=== PATIENT | female | born 1965 | race Caucasian/White ===

== ENCOUNTER → 2018-03-10 12:10 | Outpatient (CLI) | payer MEDICARE, OTHER, SELFPAY ==
--- NOTE | 2018-03-10 | DI.MRI.S_ITS ---
PROCEDURE: MR CERVICAL SPINE WO CON INDICATIONS: Cervical disc disorder, unspecified, unspecified c TECHNIQUE: Noncontrast sagittal T1 spin echo and T2 fast spin echo, sagittal STIR, foraminal oblique sagittal T2 fast spin echo, and axial gradient echo or T2 fast spin echo through the cervical spine. COMPARISON: [facility], CR, SPINE CERVICAL 2 OR 3VW, 08/22/2015, 16:29. [facility], MR, C-SPINE W&WO CONTRAST, 11/06/2014, 13:05. FINDINGS: Image quality: Partially degraded by motion artifact. Alignment and Curvature: There is loss of normal cervical lordosis. There is mild grade 1 anterolisthesis of C3 on C4. Mild grade 1 retrolisthesis of C6 on C7. Bone Marrow: Marrow demonstrates normal overall signal. Anterior fusion of C4-C5 and C5-C6 has been performed. Spinal Cord: Visualized spinal cord has normal size and signal. No cerebellar tonsillar herniation. Paraspinous Soft Tissues: No paravertebral masses. Prevertebral soft tissues are normal in thickness. C2-C3: Congenital canal stenosis. Disc desiccation. Moderate facet and uncovertebral hypertrophy, left greater than right. Mild canal stenosis. Severe left and no right foraminal stenosis. Flattening deformity of the left C3 nerve root C3-C4: Congenital canal stenosis. Mild disc height loss. Moderate disc desiccation. Mild diffuse disc bulge with superimposed broad-based left posterolateral protrusion. Moderate bilateral facet and uncovertebral hypertrophy. Increased, severe canal stenosis with new mild cord flattening. Increased, severe left and moderate right foraminal stenosis. Flattening deformity of the left C4 nerve root C4-C5: Anterior fusion. Bilateral facet and uncovertebral hypertrophy. Congenital canal stenosis. Decreased, moderate to severe canal stenosis. Mild right and moderate left foraminal stenosis or unchanged. C5-C6: Congenital canal stenosis. Status post fusion. Mild residual disc osteophyte complex. Bilateral facet and uncovertebral hypertrophy. Decreased, moderate to severe canal stenosis. Decreased, minimal cord flattening. Decreased, moderate left greater than right foraminal stenosis. C6-C7: Congenital canal stenosis. Mild disc desiccation and diffuse disc bulge. Moderate bilateral facet and uncovertebral hypertrophy. Moderate canal stenosis. Severe right and moderate left foraminal stenosis. Flattening deformity of the right C7 nerve root. C7-T1: Congenital canal stenosis. Mild disc desiccation and diffuse disc bulge. Bilateral facet and uncovertebral hypertrophy. Minimal canal stenosis. Mild bilateral foraminal stenosis. No change. IMPRESSION: 1. Diffuse congenital canal stenosis with superimposed disc and facet disease, as well as uncovertebral hypertrophy. 2. Status post C4-C5 and C5-C6 anterior fusion, with decreased canal stenoses at those levels. There is decreased, minimal cord flattening at C5-C6. 3. Increased, severe canal stenosis at C3-C4, with new mild cord flattening. 4. Multilevel foraminal stenoses, with associated neural compression at C2-C3, C3-C4, and C6-C7 as described above. Recommend correlation with clinical symptoms to ascertain relevance of these findings. Dictated by: Mattie Chua M.D. on 03/10/2018 at 13:35 Approved by: Mattie Chua M.D. on 03/10/2018 at 13:44
== END ==
PROVIDERS: PCP Internal Medicine; Visit Provider Orthopaedic Surgery
DX: M48.02 Spinal stenosis, cervical region (principal); Z98.1 Arthrodesis status
CPT/HCPCS: 72141

== ENCOUNTER → 2018-05-02 15:37 | Outpatient (CLI) | payer MEDICARE, OTHER, SELFPAY ==
--- NOTE | 2018-05-02 | DI.MRI.S_ITS ---
PROCEDURE: MR HIP RT WO CON INDICATIONS: PAIN IN RIGHT HIP TECHNIQUE: Noncontrast coronal T1 spin echo and STIR through the bony pelvis. Coronal and axial T2 fast spin echo with fat saturation, sagittal T1 spin echo, and oblique axial T2 fast spin echo with fat saturation through the hip. COMPARISON: None. FINDINGS: Image quality: Diagnostic. Bones and joints: There is no acute fracture, dislocation, suspicious osseous lesion, or evidence of avascular necrosis involving the right hip. Mild degenerative changes of the right hip are present with small developing marginal osteophytes and mild heterogeneity of the hyaline articular cartilage. No degenerative marrow changes are appreciated, however. Lateral elongation of the acetabulum is identified. The alpha angle of the right femoral head is increased and measures up to approximately 60?. No significant right hip effusion is identified. The remainder of the image osseous structures of the pelvis are otherwise unremarkable without significant pathology. Postoperative changes of the lower lumbar spine are evident. No displaced fractures or suspicious osseous lesions of the pelvis are appreciated. There may be mild red marrow reconversion. Labrum: Evaluation of the right acetabular labrum is difficult without intra-articular contrast. There is slight heterogeneity along the anterosuperior aspect of the labrum with increased signal identified extending parallel to the articular surface along the superior aspect of the labrum (11 to 12 o'clock position) (image 10, series 7). No para labral cysts or detached labral fragments are evident. Tendons and ligaments: Irregular full-thickness tearing is identified involving the distal right gluteus minimus tendon with corresponding edema extending along the myotendinous junction. The gluteus medius tendon demonstrates mild tendinopathy, but is otherwise unremarkable. There is mild increased signal identified involving the proximal right hamstrings tendons. The distal iliopsoas tendons are intact and otherwise within normal limits. The ligamentum teres demonstrates increased signal and moderate irregularity. Soft tissues: Visualized muscles demonstrate normal bulk and internal signal. Quadratus femoris muscle demonstrates no internal edema to suggest ischiofemoral impingement. The proximal sciatic neurovascular bundle appears normal adjacent to the hamstring tendons. No free pelvic fluid. Bladder wall thickness is normal. Genitourinary structures and bowel loops appear normal where visualized. There is a question of dermoid cyst involving the left ovary versus hemorrhagic components, measuring up to 1.5 cm in diameter. IMPRESSION: 1. Mild degenerative changes of the right hip. 2. Small anterosuperior right acetabular labral tear could potentially be related to femoral acetabular impingement, given mild lateral elongation of the superior acetabulum and increased alpha angle of the femoral head. 3. Full-thickness tear of the distal right gluteus minimus tendon. 4. Mild distal right gluteus medius tendinopathy and proximal right hamstrings tendinopathy. 5. Probable partial-thickness tearing of the ligamentum teres. 6. Possible small dermoid cyst of the left ovary is of doubtful clinical significance. Dictated by: Eliezer Goins M.D. on 05/02/2018 at 16:42 Approved by: Eliezer Goins M.D. on 05/02/2018 at 16:48
== END ==
PROVIDERS: PCP Internal Medicine; Visit Provider Orthopaedic Surgery
DX: M25.551 Pain in right hip (principal); S73.191A Other sprain of right hip, initial encounter; S76.811A Strain of other specified muscles, fascia and tendons at thigh level, right thigh, initial encounter; M16.11 Unilateral primary osteoarthritis, right hip
CPT/HCPCS: 73721

== ENCOUNTER → 2020-11-04 09:28 | Outpatient (CLI) | payer MEDICARE, OTHER, SELFPAY ==
--- NOTE | 2020-11-04 | DI.MG.S_ITS ---
BILATERAL DIGITAL DIAGNOSTIC MAMMOGRAM 3D/2D: 11/04/2020 CLINICAL: Right axillary lump. Comparison is made to exams dated: 09/05/2014 mammogram and 08/24/2010 mammogram - outside location. There are scattered fibroglandular elements in both breasts. No significant masses, calcifications, or other findings are seen in either breast. Specifically, no finding to correspond to the patient's right axillary palpable abnormality. Benign lymph nodes are present. IMPRESSION: INCOMPLETE: NEEDS ADDITIONAL IMAGING EVALUATION There is no abnormality seen in the right axilla to correspond with the palpable abnormality in the right axilla. Palpable lump could correspond to benign lymph nodes or a lipoma. Ultrasound is recommended for full evaluation of this area. This was performed immediately following this exam. This exam was interpreted at Station ID: [id number]. NOTE: For mammograms, a report in lay terms will be sent to the patient. Approximately 15% of breast malignancies will not be visualized mammographically. In the management of a palpable breast mass, a negative mammogram must not discourage biopsy of a clinically suspicious lesion. Electronically Signed By: Disha steele/:11/04/2020 10:11:25 ACR BI-RADS Category 0: Incomplete [id number]
--- NOTE | 2020-11-04 | DI.US.S_ITS ---
ULTRASOUND OF RIGHT AXILLA: 11/04/2020 CLINICAL: Palpable right axilla lump. Comparison is made to exams dated: 11/04/2020 mammogram - [facility], 09/05/2014 mammogram, and 08/24/2010 mammogram - outside location. Color flow and real-time ultrasound of the right axilla were performed. Calvo scale images of the real-time examination were reviewed. There are multiple benign normal lymph nodes in the right axillary tail. These normal lymph nodes display fatty hilum. These correlate as palpated and with mammography findings. Color flow imaging demonstrates that there is no increase in vascularity. IMPRESSION: BENIGN There is no sonographic evidence of malignancy. The multiple normal lymph nodes are benign. Return to annual mammogram screening schedule is recommended. Findings and recommendations were conveyed to the patient at time of exam. This exam was interpreted at Station ID: [id number]. Electronically Signed By: Disha steele/:11/04/2020 11:07:33 letter sent: Normal Exam Ultrasound BI-RADS: 2 Benign
== END ==
PROVIDERS: PCP Internal Medicine; Referring Provider Internal Medicine; Visit Provider Internal Medicine
DX: N63.31 Unspecified lump in axillary tail of the right breast; R92.2 Inconclusive mammogram
CPT/HCPCS: 76882; 77066; G0279

== ENCOUNTER 2021-03-21 14:09 | Emergency (ER) | payer MEDICARE, OTHER, SELFPAY ==
[2021-03-21] VITALS (7 sets, daily range): BP systolic 120–169; BP diastolic 68–86; PULSE 60–72; RESP 18; TEMP 37; O2SAT 95–97; BMI 25.7
[2021-03-21 14:52] LABS: Add Manual Diff / Slide Review NO; Basophils Absolute Auto 0 /uL (0-100); Basophils Percent Auto 0.6 % (0-2); Eosinophils Absolute Auto 100 /uL (0-450); Eosinophils Percent Auto 2.3 % (2-4); Hematocrit 45.8 % (36-46); Hemoglobin 15.5 g/dL (12.0-16.0); Lymphocytes Absolute Auto 1200 /uL (1100-4500); Lymphocytes Percent Auto 24.9 % (25-40); Mean Corpuscular HGB Conc 33.8 % (30-36); Mean Corpuscular Hemoglobin 31.4 PG (26-34); Monocytes Absolute Auto 400 /uL (0-900); Monocytes Percent Auto 8.5 % (3-14); Neutrophils Absolute Auto 3000 /uL (1500-7000); Neutrophils Percent Auto 63.7 % (50-75); Platelet Count 192 X10^3/uL (150-400); Red Blood Cell Count 4.93 X10^6/uL (4.0-5.2); White Blood Cell Count 4.7 X10^3/uL (4.5-11.0)
[2021-03-21] MEDS: KETOROLAC 30 MG/ML VIAL IV (14:55)
[2021-03-21] MEDS: ONDANSETRON 4 MG/2 ML INJ IV (14:55)
[2021-03-21 14:56] LABS: Alanine Aminotransferase 26 IU/L (<35); Albumin 4.7 g/dL (3.5-5.0); Albumin Globulin Ratio 1.7 (1.0-2.8); Alkaline Phosphatase 68 U/L (38-126); Aspartate Aminotransferase 29 IU/L (14-36); BUN Creatinine Ratio 20.5 (6-22); Bilirubin Total 0.5 mg/dL (0.2-1.3); Blood Urea Nitrogen 15 mg/dL (7-17); Calcium 9.7 mg/dL (8.4-10.2); Carbon Dioxide 31 mmol/L (22-32); Chloride 102 mmol/L (98-107); Estimated Glomerular Filt Rate > 60.0 mL/min (>60); Globulin 2.8 g/dL (1.7-4.1); Glucose 94 mg/dL (70-100); HEMOLYSIS < 15 (0-50); Lipase 152 U/L (23-300); Potassium 4.6 mmol/L (3.4-5.1); Sodium 140 mmol/L (137-145); Total Protein 7.5 g/dL (6.3-8.2)
[2021-03-21 15:22] LABS: Bacteria Urine Occasional (0-1); Culture Indicated Urine Cult Not Indicated; RBC Urine 1-5/HPF (0-5/HPF); Squamous Epithelial Cell Urine 0-1 /HPF (0-5/HPF); WBC Urine 0-1/HPF (0-5/HPF)
--- NOTE | 2021-03-21 16:35 | DI.CT.S_ITS ---
PROCEDURE: CT KIDNEY URETER BLADDER (KUB) INDICATIONS: left flank pain TECHNIQUE: Axial sections were acquired from the lung bases to the pubic symphysis. Coronal and sagittal reformats were performed. For radiation dose reduction, the following was used: automated exposure control, adjustment of mA and/or kV according to patient size. COMPARISON: None. FINDINGS: Image quality: Excellent. Lung bases: There is atelectasis in the lung bases. Heart: Heart is normal in size. There is a small hiatal hernia. URINARY: Right Kidney: No stones or hydronephrosis. Right Ureter: No hydroureter. Left Kidney: No stones or hydronephrosis. Left Ureter: No hydroureter. Bladder: Normal wall thickness. No stones. ABDOMEN: Liver: There is mild focal fatty infiltration in the anterior left hepatic lobe along the falciform ligament. Gallbladder: Unremarkable. Biliary ducts: Unremarkable. Pancreas: Unremarkable. Spleen: Unremarkable. Adrenal Glands: Unremarkable. Stomach and Bowel: Stomach, small bowel loops, and colon are normal in caliber and wall thickness. There are postsurgical changes along the cecum likely from prior appendectomy. A few colonic diverticular are demonstrated without acute diverticulitis. Peritoneum: No abnormal intraperitoneal fluid. No free air. Ventral Wall: No hernia. Abdominal Nodes: No enlarged retroperitoneal or mesenteric lymph nodes. Vessels: Aorta and inferior vena cava are normal in size. PELVIS: Pelvic Organs: Unremarkable. Pelvic Nodes: Unremarkable. Miscellaneous: No inguinal hernias are seen. Bones: There are postsurgical changes status post posterior fixation and fusion in the lower lumbar spine at L4-5 with left-sided pedicle screws. Multilevel degenerative disc disease demonstrated including moderate to severe degeneration L1-L2 and L2-L3. IMPRESSION: 1. No definite acute intra-abdominal abnormality. Specifically, no evidence of nephrolithiasis or obstructive uropathy. Dictated by: Nilton Rodriguez M.D. on 03/21/2021 at 16:02 Approved by: Nilton Rodriguez M.D. on 03/21/2021 at 16:07
--- NOTE | 2021-03-21 16:36 | ED.ABDPAIN ---
HPI - Abdominal Pain General Chief Complaint: Abdominal Pain Stated Complaint: abdominal pain Time Seen by Provider: 03/21/21 16:29 Source: patient Mode of arrival: Ambulatory Limitations: no limitations History of Present Illness HPI narrative: Patient is a 55-year-old female presents with left flank pain on going for the last 4 days. She has is now radiating into her left abdomen. It comes and goes. She notes that times. No fever or chills. She has been taking pain medication without any relief. No prior history of kidney stones. She feels nauseated but no vomiting. Related Data Previous Rx's Medication Instructions Recorded hydroxyzine pamoate 25 mg capsule 25 mg PO Q4HP PRN #60 cap 05/27/16 (Vistaril) oxycodone 5 mg tablet 5 mg PO Q4HP PRN #90 tab 05/27/16 hydrocodone 5 mg-acetaminophen 325 1 tab PO Q6H PRN #10 tab 03/21/21 mg tablet Allergies Allergy/AdvReac Type Severity Reaction Status Date / Time Penicillins [PENICILLINS] Allergy Severe RASH Verified 03/21/21 14:14 Review of Systems Review of Systems Narrative: GENERAL: Denies chills, fatigue, malaise, fever, sweats, travel HEENT: Denies sinus pain, ear pain, sore throat, difficulty swallowing, neck pain RESPIRATORY: Denies dyspnea, cough, wheezing, hemoptysis, sputum. CARDIOVASCULAR: Denies chest pain, palpitations, orthopnea, edema GASTROINTESTINAL: See HPI : See HPI MUSCULOSKELETAL: Denies weakness, joint pain, or bony pain SKIN: No rash, no erythema, no pruritus NEUROLOGIC: Denies weakness, dizziness, headache, numbness, change in speech, confusion PSYCHIATRIC: No concerning psychosocial issues. 12 point review of systems is negative except for those stated above and HPI Patient History Social History Smoking Status: Current every day smoker Smoking Status: Current every day smoker tobacco type: cigarettes Substance Use Type: does not use Exam Initial Vital Signs Initial Vital Signs: Vital Signs Temperature 98.6 F 03/21/21 14:15 Pulse Rate 72 03/21/21 14:15 Respiratory Rate 18 03/21/21 14:15 Blood Pressure 169/86 H 03/21/21 14:15 Pulse Oximetry 95 03/21/21 14:15 GENERAL: Alert very anxious 55-year-old female and in no acute distress. HEENT: Head atraumatic,EOMI, pupils reactive, face symmetric, moist mucous membranes CARDIOVASCULAR: Regular rate and rhythm without murmurs, rubs or gallops. RESPIRATORY: Breath sounds equal bilaterally, no wheezes rales or rhonchi. ABDOMEN: Soft, mild left-sided pain no guarding or rebound : Mild left CVA tenderness EXTREMITIES: Normal range of motion, no clubbing or edema. Neurovascularly intact NEUROLOGICAL: Alert and oriented x4. SKIN: Warm, dry, no laceration, no petechiae, no rashes or lesions. Course Orders Ordered: ED Orders 03/21/21 14:30 Complete Blood Count AUTO DIFF Stat Comprehensive Metabolic Panel Stat Lipase Stat 03/21/21 14:35 Urine Microscopic Stat 03/21/21 16:35 CT kidney ureter bladder (KUB) Stat Discontinued Medications Hydrocodone Bitart/Acetaminophen (Hydrocodone/Acet 5/325 Prepack) 1 bottle MISC SEEINSTR ONE Stop: 03/21/21 17:31 Last Admin: 03/21/21 17:36 Dose: 1 bottle Documented by: SADE Hydromorphone HCl (Hydromorphone 0.5 Mg Inj) 0.5 mg IV NOW ONE Stop: 03/21/21 16:36 Last Admin: 03/21/21 16:46 Dose: 0.5 mg Documented by: SADE Ketorolac Tromethamine (Ketorolac 30 Mg/Ml Vial) 30 mg IV NOW ONE Stop: 03/21/21 14:35 Last Admin: 03/21/21 14:55 Dose: 30 mg Documented by: FLORIDALMA Ondansetron HCl (Ondansetron 4 Mg/2 Ml Inj) 4 mg IV NOW ONE Stop: 03/21/21 14:36 Last Admin: 03/21/21 14:55 Dose: 4 mg Documented by: FLORIDALMA Vital Signs Vital signs: Vital Signs - 8 hr 03/21/21 14:15 03/21/21 15:08 03/21/21 15:30 Temperature 98.6 F Pulse Rate 72 64 63 Respiratory Rate 18 Blood Pressure 169/86 H 135/74 120/78 Pulse Oximetry 95 97 95 03/21/21 16:00 03/21/21 16:30 03/21/21 17:00 Temperature Pulse Rate 67 60 64 Respiratory Rate Blood Pressure 125/68 139/80 164/84 H Pulse Oximetry 95 95 95 03/21/21 17:30 Temperature Pulse Rate 67 Respiratory Rate Blood Pressure 156/74 H Pulse Oximetry 97 MDM - Abdominal Pain Lab Data Result diagrams: 03/21/21 14:30 03/21/21 14:30 Labs: Lab Results 03/21/21 03/21/21 03/21/21 Range/Units 14:30 14:30 14:35 WBC 4.7 (4.5-11.0) X10^3/uL RBC 4.93 (4.0-5.2) X10^6/uL Hgb 15.5 (12.0-16.0) g/dL Hct 45.8 (36-46) % MCV 93.0 (80-100) fL MCH 31.4 (26-34) PG MCHC 33.8 (30-36) % RDW 13.0 (11.6-14.8) % Plt Count 192 (150-400) X10^3/uL Neut % (Auto) 63.7 (50-75) % Lymph % (Auto) 24.9 L (25-40) % [place] % (Auto) 8.5 (3-14) % Eos % (Auto) 2.3 (2-4) % Baso % (Auto) 0.6 (0-2) % Neut # (Auto) 3000 (0594-3379) /uL Lymph # (Auto) 1200 (5938-0919) /uL [place] # (Auto) 400 (0-900) /uL Eos # (Auto) 100 (0-450) /uL Baso # (Auto) 0 (0-100) /uL Sodium 140 (137-145) mmol/L Potassium 4.6 (3.4-5.1) mmol/L Chloride 102 (98-107) mmol/L Carbon Dioxide 31 (22-32) mmol/L BUN 15 (7-17) mg/dL Creatinine 0.73 (0.52-1.04) mg/dL Estimated GFR > 60.0 (>60) mL/min BUN/Creatinine Ratio 20.5 (6-22) Glucose 94 (70-100) mg/dL Calcium 9.7 (8.4-10.2) mg/dL Total Bilirubin 0.5 (0.2-1.3) mg/dL AST 29 (14-36) IU/L ALT 26 (<35) IU/L Alkaline Phosphatase 68 (38-126) U/L Total Protein 7.5 (6.3-8.2) g/dL Albumin 4.7 (3.5-5.0) g/dL Globulin 2.8 (1.7-4.1) g/dL Albumin/Globulin Ratio 1.7 (1.0-2.8) Lipase 152 (23-300) U/L Urine RBC 1-5/hpf (0-5/HPF) Urine WBC 0-1/hpf (0-5/HPF) Ur Squamous Epith Cells 0-1 /hpf (0-5/HPF) Urine Bacteria Occasional (0-1) (None) Ur Culture Indicated? Cult not indicated Point of care testing: Urine Dip Bedside Urine Glucose Negative Bedside Urine Bilirubin - Negative Bedside Urine Ketone - Negative Urine Specific [place] 1.030 Bedside Urine Occult Blood +/- Bedside Urine pH 5.5 Bedside Urine Protein - Negative Bedside Urine Urobilinogen - Negative Bedside Urine Nitrite - Negative Bedside Urine Leukocytes - Negative Esterase Imaging Data CT scan - abdomen/pelvis: Radiologist's Impression: PROCEDURE:? CT KIDNEY URETER BLADDER (KUB) ? INDICATIONS:? left flank pain ? TECHNIQUE:? Axial sections were acquired from the lung bases to the pubic symphysis.? Coronal and sagittal reformats were performed.? For radiation dose reduction, the following was used: ?automated exposure control, adjustment of mA and/or kV according to patient size.? ? COMPARISON:? None. ? FINDINGS:? Image quality:? Excellent.? ? Lung bases:? There is atelectasis in the lung bases. Heart:? Heart is normal in size.? There is a small hiatal hernia. ? URINARY: Right Kidney: ? No stones or hydronephrosis.? Right Ureter:? No hydroureter.? ? Left Kidney: ? No stones or hydronephrosis. Left Ureter:? No hydroureter.? ? Bladder:? Normal wall thickness. No stones. ? ? ? ABDOMEN: Liver:? There is mild focal fatty infiltration in the anterior left hepatic lobe along the falciform ligament.? ? Gallbladder:? Unremarkable.? ? Biliary ducts:? Unremarkable.? ? Pancreas:? Unremarkable.? ? Spleen:? Unremarkable.? ? Adrenal Glands:? Unremarkable.? ? ? Stomach and Bowel:? Stomach, small bowel loops, and colon are normal in caliber and wall thickness.? There are postsurgical changes along the cecum likely from prior appendectomy.? A few colonic diverticular are demonstrated without acute diverticulitis. Peritoneum:? No abnormal intraperitoneal fluid.? No free air.? ? Ventral Wall: ? No hernia.? Abdominal Nodes:? No enlarged retroperitoneal or mesenteric lymph nodes.? Vessels:? Aorta and inferior vena cava are normal in size.? ? PELVIS: Pelvic Organs:? Unremarkable.? ? Pelvic Nodes: Unremarkable. Miscellaneous: No inguinal hernias are seen. ? ? ? Bones:? There are postsurgical changes status post posterior fixation and fusion in the lower lumbar spine at L4-5 with left-sided pedicle screws.? Multilevel degenerative disc disease demonstrated including moderate to severe degeneration L1-L2 and L2-L3. ? IMPRESSION:? ? 1. No definite acute intra-abdominal abnormality.? Specifically, no evidence of nephrolithiasis or obstructive uropathy.? ? ? Dictated by: Nilton Rodriguez M.D. on 03/21/2021 at 16:02 ? [facility] Narrative Medical decision making narrative: The patient is asking if she can eat and drink. She has no leukocytosis blood work is overall reassuring for ECT actually does not show any abnormality. She is re-examined and pain is actually reproducible with palpation. She is feeling much better after Dilaudid. She was quite anxious or but the dilaudid seem to help. Discharge Plan Departure Patient Disposition: Home Clinical Impression: Abdominal pain Instructions: DI for Abdominal Muscle Strain Activity Restrictions/Additional Instructions: *You have been diagnosed with abdominal muscle strain *What to do: At this time no of his of kidney stone or other abnormality. Recommend heating pad and light stretches. *Continue to take medications as directed [place] 1 tablet every 6 hours if needed for severe pain Ibuprofen 600 mg every 6 hours if needed for feum-[id number] pain *Follow up with your primary care provider in 2-3 days *Return to ER if you should have increasing pain, persistent vomiting fever or any new, worsening or concerning symptoms CONTROLLED SUBSTANCE DISCHARGE (Narcotoic/benzodiazepine/Flexeril/Phenergan) 1. You have been prescribed narcotic medications, it does have acetaminophen/Tylenol/paracetamol in it, DO NOT TAKE MORE THAN 4,00mg in 24 hours of Tylenol. TRAMADOL DOES NOT CONTAIN TYLENOL 2. Please understand that we cannot provide further refills of narcotics, benzodiazepines or controlled substances through the ED and her pain management will need to be through your provider. 3. While on these medications you cannot drive or operate heavy machinery. 4. You cannot sign legal documents or perform any duties such as this. 5. As long as you're taking opiate pain medications he should also be taking a stool softener such as Colace, Dulcolax, MiraLAX or prune juice, to help avoid constipation. Prescriptions: New hydrocodone-acetaminophen 5-325 mg tablet 1 tab PO Q6H PRN (Reason: pain) Qty: 10 0RF No Action oxycodone 5 MG tablet 5 mg PO Q4HP PRNQty: 90 0RF hydroxyzine pamoate [Vistaril] 25 MG capsule 25 mg PO Q4HP PRNQty: 60 1RF Referrals: Henry Jacinto MD [Primary Care Provider] -
[2021-03-21] MEDS: HYDROMORPHONE 0.5 MG INJ IV (16:46)
[2021-03-21] MEDS: HYDROCODONE/ACET 5/325 PREPACK 1 BOTTLE MISC (17:36)
== END 2021-03-21 17:42 | disposition home or self-care (01) ==
PROVIDERS: Emergency Provider Emergency Medicine; PCP Internal Medicine
DX: R10.9 Unspecified abdominal pain (principal); R11.0 Nausea
CPT/HCPCS: 36415; 74176; 80053; 81003; 81015; 83690; 85025; 96374; 96375; 99284; J1170; J1885; J2405

== ENCOUNTER 2022-05-17 13:41 | Emergency (ER) | payer MEDICARE, OTHER, SELFPAY ==
[2022-05-17 13:45] VITALS: BP 155/86; PULSE 81; RESP 18; TEMP 37.1; O2SAT 94; BMI 26.6
[2022-05-17 17:10] VITALS: BP 129/81; PULSE 78; TEMP 36.8; O2SAT 95
--- NOTE | 2022-05-17 17:21 | PC.NURSE ---
Pt complaining of right shoulder pain, denies CP/ SOB. Pt thinks her pain is related to an infection or underlying cause Pt states she has been on antibiotics for her nose. Denies any trauma to her right arm.
[2022-05-17 18:24] VITALS: BP 136/78; PULSE 76; RESP 17; O2SAT 99
--- NOTE | 2022-05-17 20:35 | ED_ITS ---
HPI - Extremity Problem <Raleigh Cuellar PA-C - Last Filed: 05/17/22 20:42> General Chief complaint: Extremity Problem,Nontraumatic Stated complaint: severe right shoulder pain/heart issues this week Time Seen by Provider: 05/17/22 17:02 Source: patient Mode of arrival: Wheelchair History of Present Illness HPI Narrative: 56-year-old female with past medical history bipolar 2 disorder, ADHD, OCD presents to the ED with 4 days of right-sided shoulder pain. Patient states the pain is right below the shoulder blade, is reproducible with palpation. Patient denies any trauma. Patient denies chest pain, shortness of breath, fever, chills, nausea, vomiting, abdominal pain, dysuria, lightheadedness, dizziness, syncope. Related Data Previous Rx's Medication Instructions Recorded hydroxyzine pamoate 25 mg capsule 25 mg PO Q4HP PRN #60 caps 05/27/16 (Vistaril) oxycodone 5 mg tablet 5 mg PO Q4HP PRN #90 tabs 05/27/16 hydrocodone 5 mg-acetaminophen 325 1 tab PO Q6H PRN pain #10 tabs 03/21/21 mg tablet Allergies Allergy/AdvReac Type Severity Reaction Status Date / Time Penicillins [PENICILLINS] Allergy Severe RASH Verified 05/17/22 13:44 Review of Systems <Raleigh Cuellar PA-C - Last Filed: 05/17/22 20:42> Review of Systems ROS Unobtainable: All systems reviewed & are unremarkable except as noted in HPI and below Constitutional Constitutional: Denies chills, Denies fatigue, Denies fever(s), Denies frequent falls, Denies lethargy and Denies weakness Eyes Eyes: Denies change in vision, Denies eye discharge, Denies irritation and Denies loss of vision ENT Ears, Nose, Mouth, and Throat: Denies change in voice, Denies dizziness, Denies neck pain, Denies sore throat and Denies throat swelling Cardiovascular Cardiovascular: Denies chest pain, Denies irregular heart rhythm, Denies lightheadedness, Denies palpitations, Denies dyspnea, Denies dyspnea on exertion and Denies orthopnea Respiratory Respiratory: Denies cough, Denies dyspnea, Denies dyspnea on exertion and Denies wheezing Gastrointestinal Gastrointestinal: Denies abdominal pain, Denies change in bowel habits, Denies diarrhea, Denies nausea and Denies vomiting Genitourinary Genitourinary: Denies hematuria, Denies flank pain, Denies urinary incontinence and Denies urinary urgency Musculoskeletal Musculoskeletal: Denies back pain, Denies muscle weakness, Denies neck pain, Denies numbness and Denies tingling Comments: Right shoulder pain Integumentary/Breasts Skin/Breast: Denies pruritus, Denies erythema, Denies rash and Denies wounds Neurologic Neurologic: Denies behavioral changes, Denies confusion, Denies dizziness, Denies frequent falls, Denies loss of vision, Denies numbness, Denies tingling and Denies weakness Psychiatric Psychiatric: Denies anxiety, Denies behavioral changes, Denies confusion, Denies depression, Denies homicidal ideation and Denies suicidal ideation Endocrine Endocrine: Denies fatigue, Denies flushing and Denies palpitations Hematologic/Lymphatic Hematologic/Lymphatic: Denies easy bruising Allergic/Immunologic Allergic/Immunologic: Denies urticaria, Denies throat swelling and Denies wheezing Patient History <Raleigh Cuellar PA-C - Last Filed: 05/17/22 20:42> Social History Smoking Status: Current every day smoker Smoking Status: Current every day smoker tobacco type: cigarettes Substance Use Type: does not use Exam <Raleigh Cuellar PA-C - Last Filed: 05/17/22 20:42> Narrative Exam Narrative: Const General:?cooperative, healthy appearing and comfortable [facility] Head:?normal to inspection Ears:?hearing grossly normal bilaterally Nose:?external nose normal Face and sinus:?normal facial exam and sinuses nontender Mouth:?oral mucosae normal Throat:?posterior oropharynx normal Eyes General:?appearance normal, both eyes and all related structures Neck Neck:?normal visual inspection and no lymphadenopathy noted Resp Effort & Inspection:?normal respiratory effort Auscultation:?clear to auscultation bilaterally Cardio Rate:?regular rate Rhythm:?regular rhythm Musculoskeletal Tenderness to palpation of the right shoulder blade. No rashes or lesions noted on exam. There is full range of motion. Strength and sensation is intact. Patient is neurovascularly intact. Neuro General:?patient alert, patient awake and patient oriented x3 Initial Vital Signs Initial Vital Signs: Vital Signs Temperature 98.7 F 05/17/22 13:45 Pulse Rate 81 05/17/22 13:45 Respiratory Rate 18 05/17/22 13:45 Blood Pressure 155/86 H 05/17/22 13:45 Pulse Oximetry 94 05/17/22 13:45 Oxygen Delivery Method 05/17/22 13:45 <Lise Cade DO - Last Filed: 05/18/22 10:41> Initial Vital Signs Initial Vital Signs: Vital Signs Temperature 98.7 F 05/17/22 13:45 Pulse Rate 81 05/17/22 13:45 Respiratory Rate 18 05/17/22 13:45 Blood Pressure 155/86 H 05/17/22 13:45 Pulse Oximetry 94 05/17/22 13:45 Oxygen Delivery Method 05/17/22 13:45 Course <Raleigh Cuellar PA-C - Last Filed: 05/17/22 20:42> Vital Signs Vital signs: Vital Signs - 8 hr 05/17/22 13:45 05/17/22 17:10 05/17/22 18:24 Temperature 98.7 F 98.3 F Pulse Rate 81 78 76 Respiratory Rate 18 17 Blood Pressure 155/86 H 129/81 136/78 Pulse Oximetry 94 95 99 Oxygen Delivery Method Room Air Room Air Room Air <Lise Cade DO - Last Filed: 05/18/22 10:41> Vital Signs Vital signs: Vital Signs - 8 hr 05/17/22 13:45 05/17/22 17:10 05/17/22 18:24 Temperature 98.7 F 98.3 F Pulse Rate 81 78 76 Respiratory Rate 18 17 Blood Pressure 155/86 H 129/81 136/78 Pulse Oximetry 94 95 99 Oxygen Delivery Method Room Air Room Air Room Air MDM - Extremity (Nontraumatic) <Raleigh Cuellar PA-C - Last Filed: 05/17/22 20:42> MDM Narrative Medical decision making narrative: 56-year-old female with past medical history bipolar 2 disorder, ADHD, OCD presents to the ED with 4 days of right-sided shoulder pain. Concern for musculoskeletal sprain/strain versus shingles versus other. Unlikely shingles given no rashes. Also, nature of the pain is most consistent with a musculoskeletal sprain/strain since there is tenderness to palpation in the region of the right shoulder blade. Recommend supportive measures with ibuprofen. Patient agrees to follow-up with her PCP. ED return precautions were discussed with patient. Patient verbalized understanding. Medical records reviewed: Yes Discharge Plan Departure Patient Disposition: Home Clinical Impression: Acute shoulder pain Instructions: DI for Shoulder Pain Activity Restrictions/Additional Instructions: You were evaluated in the ED today for right-sided shoulder pain. Your physical exam was reassuring. Your symptoms are likely due to a musculoskeletal sprain/strain. You may take ibuprofen 800 mg 3 times a day with food for the pain and inflammation. Return to the ED if your symptoms worsen, you experience chest pain or shortness of breath. Please follow-up with your PCP as soon as possible. Prescriptions: No Action oxycodone 5 MG tablet 5 mg PO Q4HP PRNQty: 90 0RF hydroxyzine pamoate [Vistaril] 25 MG capsule 25 mg PO Q4HP PRNQty: 60 1RF hydrocodone-acetaminophen 5-325 mg tablet 1 tab PO Q6H PRN (Reason: pain) Qty: 10 0RF Referrals: Henry Jacinto MD [Primary Care Provider] - Stand Alone Forms: Patient Portal/API <Lise Cade DO - Last Filed: 05/18/22 10:41> Cosign ED Attending Rohitature Attestation: I was immediately available in the department for consultation. Documentation has been reviewed.
== END 2022-05-17 18:25 | disposition home or self-care (01) ==
PROVIDERS: Emergency Provider Student in an Organized Health Care Education/Training Program; PCP Internal Medicine
DX: M25.511 Pain in right shoulder (principal)
CPT/HCPCS: 99281

== ENCOUNTER → 2023-08-04 11:08 | Outpatient (CLI) | payer MEDICARE, OTHER, SELFPAY ==
[2023-08-04 12:40] LABS: Add Manual Diff / Slide Review NO; Basophils Absolute Auto 0 /uL (0-100); Basophils Percent Auto 0.2 % (0-2); Eosinophils Absolute Auto 0 /uL (0-450); Eosinophils Percent Auto 0.2 % (2-4); Hematocrit 47.3 % (36-46); Hemoglobin 15.9 g/dL (12.0-16.0); Lymphocytes Absolute Auto 1000 /uL (1100-4500); Lymphocytes Percent Auto 12.4 % (25-40); Mean Corpuscular HGB Conc 33.6 % (30-36); Mean Corpuscular Hemoglobin 31.8 PG (26-34); Mean Corpuscular Volume 94.5 fL (80-100); Monocytes Absolute Auto 500 /uL (0-900); Monocytes Percent Auto 5.8 % (3-14); Neutrophils Absolute Auto 6800 /uL (1500-7000); Neutrophils Percent Auto 81.4 % (50-75); Platelet Count 208 X10^3/uL (150-400); Red Cell Distribution Width 12.9 % (11.6-14.8); White Blood Cell Count 8.3 X10^3/uL (4.5-11.0)
[2023-08-04 13:09] LABS: Hemoglobin A1C% w Est Avg Glu 4.9 % (4.0-6.0)
[2023-08-04 13:56] LABS: Albumin 4.9 g/dL (3.5-5.0); BUN Creatinine Ratio 19.7 (6-22); Blood Urea Nitrogen 14 mg/dL (7-17); Calcium 9.5 mg/dL (8.4-10.2); Carbon Dioxide 31 mmol/L (22-32); Chloride 103 mmol/L (98-107); Estimated Glomerular Filt Rate > 60 mL/min (>60); Glucose 88 mg/dL (70-100); HEMOLYSIS < 15 (0-50); Potassium 4.3 mmol/L (3.4-5.1); Sodium 139 mmol/L (137-145)
[2023-08-04 14:04] LABS: Prealbumin 28.1 mg/dL (17.6-36.0)
[2023-08-04 16:15] LABS: Vitamin D 25 Hydroxy (D3) 34.3 ng/mL (30.0-100.0)
== END ==
PROVIDERS: PCP Internal Medicine; Referring Provider Orthopaedic Surgery Adult Reconstructive Orthopaedic Surgery; Visit Provider Orthopaedic Surgery Adult Reconstructive Orthopaedic Surgery
DX: Z01.818 Encounter for other preprocedural examination (principal); Z01.812 Encounter for preprocedural laboratory examination; R77.0 Abnormality of albumin; E55.9 Vitamin D deficiency, unspecified
CPT/HCPCS: 36415; 80048; 82040; 82306; 83036; 84134; 85025; 93005

== ENCOUNTER → 2024-03-05 08:46 | Outpatient (CLI) | payer MEDICARE, OTHER, SELFPAY ==
--- NOTE | 2024-03-05 10:00 | DI.MRI.S_ITS ---
PROCEDURE: MR KNEE LT WO CON INDICATIONS: Left knee pain TECHNIQUE: Noncontrast sagittal PD fast spin echo and T2 fast spin echo with fat saturation, sagittal 3-D FLASH with fat saturation; coronal T1 spin echo and PD fast spin echo with fat saturation, and axial PD fast spin echo with fat saturation through the knee. COMPARISON: [facility], CR, XR KNEE ARTHRITIC SERIES LT, 02/22/2024, 11:15. [facility], CR, XR HAND 3+ VIEWS BILATERAL, 07/04/2023, 10:29. [facility] [place], CR, XR KNEE 4+ VIEWS LEFT, 08/04/2023, 10:08. [facility], CR, XR KNEE 4+ VIEWS LEFT, 01/26/2022, 10:30. FINDINGS: Image quality: Excellent. Bones: Marrow edema subchondral cyst is present at the tibial eminence (03/06). Additional marrow edema is present along the medial aspect of the intercondylar notch extending into the medial femoral condyle (03/05; 11/28). Mild subchondral marrow edema is present at the posterior-lateral tibial plateau (03/10). There is no acute fracture or dislocation. Joints: There is a small knee joint effusion. There is mild-moderate knee osteoarthritis. Flores's cyst: None. Menisci: Superimposed on truncation, there is a complex tear of the body and posterior horn of the medial meniscus (03/07-). Superimposed on diffuse truncation, there is a complex tear of the body and posterior horn of the medial meniscus with an additional vertical tear at the posterior horn-posterior root junction (03/10). There is complex degeneration of the posterior root attachment of the lateral meniscus (03/10). The posterior root attachment of the medial meniscus is intact. Cruciate ligaments: There is diffuse intermediate signal of the anterior cruciate ligament with a greater than expected flattened appearance of the fibers (/16). There is interstitial fluid signal along the course of the posterior cruciate ligament (/; /). These findings are associated with a slightly dysplastic and widened appearance of the intercondylar notch (02/03). Collateral ligaments: The medial collateral ligament complex is normal. The lateral collateral ligament complex is normal. Popliteus Muscle/Tendon: The popliteus muscle and tendon are normal. Extensor mechanism: The quadriceps tendon is normal. The patellar tendon is normal. The medial and lateral patellar retinacular attachments are normal. Articular cartilage: Near full-thickness chondral loss is present at the posterior weight-bearing medial compartment (/). Partial-thickness chondral loss is present throughout the lateral compartment with focal full-thickness chondral loss at the posterior weight-bearing compartment adjacent to the site of the vertical tear (/). Full-thickness chondral loss is present along the posterior nonweightbearing lateral femoral condyle (8/23). Additional areas of partial thickness chondral loss are present along the lateral patellofemoral compartment (6/11). Other: No other acute findings. IMPRESSION: 1. Interstitial tear of the posterior cruciate ligament along with mucoid degeneration of the ACL and possible prior tearing, with subsequent remodeling and reactive marrow edema of the intercondylar notch. 2. Complex tear of the body and posterior horn of the medial meniscus. 3. Complex tear of the body and posterior horn of the medial meniscus with a vertical tear at the posterior horn-posterior root junction. 4. Mild-moderate knee osteoarthritis with associated articular cartilage defects and reactive marrow edema. Dictated by: Wilbur Mccann M.D. on 03/06/2024 at 12:18 Approved by: Wilbur Mccann M.D. on 03/06/2024 at 12:42
== END ==
PROVIDERS: PCP Internal Medicine; Referring Provider Orthopaedic Surgery; Visit Provider Orthopaedic Surgery
DX: S83.232A Complex tear of medial meniscus, current injury, left knee, initial encounter (principal); S83.272A Complex tear of lateral meniscus, current injury, left knee, initial encounter; S83.522A Sprain of posterior cruciate ligament of left knee, initial encounter; M25.462 Effusion, left knee; M23.92 Unspecified internal derangement of left knee; M25.562 Pain in left knee; M17.5 Other unilateral secondary osteoarthritis of knee
CPT/HCPCS: 73721